=== PATIENT | male | born 1995 | race African-American/Black ===

== ENCOUNTER 2018-04-24 00:26 | Emergency (ER) | payer MEDICAID ==
[~2018-04-24] VITALS: Ht 175.3 cm; Wt 64.0 kg
[2018-04-24] MEDS ORDERED: IBUPROFEN 600MG TABLET PO ONE (01:45)
[2018-04-24 02:03] VITALS: BP 130/63
== END 2018-04-24 02:04 | disposition home or self-care (01) ==
LOC: ER 00:26
DX: K02.9 Dental caries, unspecified (principal); F17.200 Nicotine dependence, unspecified, uncomplicated; F12.10 Cannabis abuse, uncomplicated
CPT/HCPCS: 99282

== ENCOUNTER 2018-04-24 15:11 | Emergency (ER) | payer MEDICAID ==
[~2018-04-24] VITALS: Ht 182.9 cm; Wt 63.0 kg
[2018-04-24] MEDS ORDERED: AMOXICILLIN 500 MG CAPSULE PO ONE (16:45)
[2018-04-24] MEDS ORDERED: IBUPROFEN 800MG TABLET PO ONE (16:45)
[2018-04-24 17:13] VITALS: BP 140/78
== END 2018-04-24 17:13 | disposition home or self-care (01) ==
LOC: ER 15:11
DX: K02.9 Dental caries, unspecified (principal)
CPT/HCPCS: 99283

== ENCOUNTER 2021-05-31 04:04 | Emergency (ER) | payer MEDICAID ==
[~2021-05-31] VITALS: Ht 177.8 cm; Wt 82.0 kg
[2021-05-31] MEDS ORDERED: HYDROCODONE/ACETAMINOPHEN 5/325MG TABLET PO ONE (04:30)
[2021-05-31] MEDS ORDERED: IBUP-2030 MT (05:13)
[2021-05-31] MEDS ORDERED: T3 PO (05:13)
[2021-05-31 05:40] VITALS: BP 126/65
== END 2021-05-31 05:40 | disposition home or self-care (01) ==
LOC: ER 04:04
DX: S42.021A Displaced fracture of shaft of right clavicle, initial encounter for closed fracture (principal); V00.131A Fall from skateboard, initial encounter; Y93.51 Activity, roller skating (inline) and skateboarding; Y92.89 Other specified places as the place of occurrence of the external cause; Y99.8 Other external cause status
CPT/HCPCS: 73000; 99283; A4565